=== PATIENT | female | born 2000 | race Caucasian/White ===

== ENCOUNTER 2018-07-11 00:45 | Inpatient (IN) ==
[2018-07-11 02:06] LABS: Microscopic, Urine URINE MICROSCOPIC (MICROSCOPIC)
[2018-07-11 02:10] LABS: Basophils % 0.2 % (0.1-2.0); Eosinophils # 0.1 K/mm3 (0.0-0.4); Hematocrit 35.1 % (37.0-47.0); Hemoglobin 11.4 g/dL (12.2-16.2); Lymphocytes # 2.3 K/mm3 (0.7-4.5); Lymphocytes % 17.7 % (10-50); Mean Corpuscular HGB Conc 32.4 g/dL (31.8-35.4); Mean Corpuscular Hemoglobin 30.2 pg (27.0-31.2); Mean Corpuscular Volume 93.1 fl (81-99); Mean Platelet Volume 9.2 fl (7.4-10.4); Monocytes # 0.8 K/mm3 (0.1-1.0); Monocytes % 5.9 % (1.7-9.3); Neutrophils # 9.7 K/mm3 (1.8-7.8); Neutrophils % 75.3 % (37.0-80.0); Platelet Count 224 K/mm3 (142-424); Red Blood Count 3.77 M/mm3 (4.20-5.40); Red Cell Distribution Width 13.8 % (11.5-17.5); White Blood Count 12.9 K/mm3 (4.5-13.0)
[2018-07-11 02:13] LABS: Appearance,Urine CLEAR (Clear); Bilirubin,Urine Negative (Negative); Blood, Urine Negative (Negative); Color,Urine YELLOW (Yellow); Glucose,Urine (UA) Negative (Negative); Ketones,Urine Negative (Negative); Leukocyte Esterase,Urine Negative (Negative); PH,Urine 6.5 (5.0-8.5); Protein,Urine Negative (Negative); Specific Gravity, Urine 1.025 (1.005-1.030); Urobilinogen,Urine 0.2 EU/dl (0.2)
[2018-07-11 02:15] LABS: Anion Gap 16.8 mEq/L (5-15); Potassium 3.8 mmoL/L (3.5-5.1)
[2018-07-11 02:22] LABS: Amphetamine/Metha Screen,Urine Negative ng/mL (<1000); Barbiturates Screen,Urine Negative ng/mL (<200); Benzodiazepines Screen,Urine Negative ng/mL (<200); Cannabinoid Screen,Urine Negative ng/mL (<50); Cocaine Screen,Urine Negative ng/mL (<300); Methadone Screen,Urine Negative ng/mL (<300); Opiate Screen,Urine Negative ng/mL (<300); Phencyclidine Screen,Urine Negative ng/mL (<25)
[2018-07-11 02:33] LABS: Bacteria,Urine 1+ /lpf
--- NOTE | 2018-07-11 10:42 | Progress Note ---
[facility] Anesthesia Checklist - Patient Identification Patient Identification: Arm Band, Verbal (Name & ) - Structural Data Admitted From: Inpatient Planned Operative Procedure/s: labor epidural Consent for Planned Operative Procedure(s) Verified: Yes Verified Documents: History and Physical - NPO Status Verified Time NPO: 00:00 - Chart Verification Results Verified: CBC - Additional verifications Patient : Yes Anesthesia Reactions: No Cephalosporin Allergy: No Previous Colonoscopy: No - Cardiovascular Assessment Heart Sounds: S1 & S2 Pulse Strength: Baseline Pulse Rhythm: Regular Peripheral Edema: No - Airway Assessment C-Spine Mobility Assessed: Yes TMJ Mobility Assessed: Yes Dentition: Good Dentition - Neurological Assessment Level of Consciousness: Awake, Alert, Appropriate Hx Seizures: No Numbness or tingling in extremities: No - Anesthesia Plan Anesthesia Risk discussed: Yes Anesthesia Plan: Verified ASA Class: II Anesthesia Type: Epidural [facility] History I have reviewed the patient's past medical history: Yes Have you ever received a pneumonia vaccine?: No Have you received a flu vaccine this season?: Yes Other Surgeries: No: - *Social History Educational Level: Completed Grade School Smoking Status: Current every day smoker Tobacco Type: cigarettes # Packs/Day (cigarettes): 1 Alcohol Intake: never Occupational Status: unemployed Housing: house Household Members: children Travel in the last 8 weeks: None - Psychiatric History Expresses thoughts of harming self/others: None Suicide Plan Description: No Plan Para: 1
--- NOTE | 2018-07-11 11:24 | History & Physical Report ---
OB - H&P: HPI Antepartum - History of Present Illness Chief complaint: contractions History of present illness: 18 yo @ 39 10/[address] Lehman ([facility]) presented to triage with regular contractions. Cervical change was noted and she was admitted. Partial records were obtained from primary OB's office. GBS positive with PCN allergy; Clindamycin was started and received 1 dose prior to delivery. O+/Ab-, RPR NR, HIV NR, Hep C/B neg, GC/CT neg, Rubella immune. One previous full term , 1 previous SAB Hx of anxiety, depression and panic attacks but no current meds [facility] History I have reviewed the patient's past medical history: Yes Medical History: Denies:: Seizures Have you ever received a pneumonia vaccine?: No Have you received a flu vaccine this season?: Yes Other Surgeries: No: - *Social History Educational Level: Completed Grade School Smoking Status: Current every day smoker Tobacco Type: cigarettes # Packs/Day (cigarettes): 1 Alcohol Intake: never Occupational Status: unemployed Housing: house Household Members: children Travel in the last 8 weeks: None - Psychiatric History Expresses thoughts of harming self/others: None Suicide Plan Description: No Plan Para: 1 Review of Systems - Review of Systems CONSTITUTIONAL: no fever/chills HEENT: no oral lesions PULMONARY: no shortness of breath or difficulty breathing CV: no racing heart, palpitations or chest pain ABD: no abdominal pain, N/V : reg ctx SKIN: no new rash or skin lesions EXT: no edema NEURO: no mental status changes PSYCH: + anxiety Meds Allergies Allergy/AdvReac Type Severity Reaction Status Date / Time amoxicillin Allergy Unknown Verified 07/11/18 01:42 OB - H&P: Exam - Physical Exam Vital signs: Temp Pulse Resp BP Pulse Ox 97.7 F 91 H 18 103/58 L 100 07/11/18 08:00 07/11/18 08:00 07/11/18 08:00 07/11/18 08:00 07/11/18 08:00 Narrative: CONSTITUTIONAL: no acute distress HEENT: mucous membranes moist PULMONARY: breathing unlabored without audible wheezes CV: no tachycardia or visible JVD; normal LE peripheral pulses ABD: soft, NT/ND, no guarding. Gravid uterus. : cervix /-1 SKIN: no visible rash or lesions HEME: no lymphadenopathy EXT: 1+ edema LEs NEURO: alert/oriented, no altered mental status PSYCH: appropriate mood and demeanor without visible anxiety/depression NST: Basline: 150 Variability: moderate Accelerations: yes Decelerations: no Impression: Reactive, Category 1 OB - Results - Labs Labs: Short CBC 07/11/18 Range/Units 01:55 WBC 12.9 (4.5-13.0) K/mm3 Hgb 11.4 L (12.2-16.2) g/dL Hct 35.1 L (37.0-47.0) % Plt Count 224 (142-424) K/mm3 BMP 07/11/18 01:55 Sodium 137 Potassium 3.8 Chloride 103 Carbon Dioxide 21 BUN 6 L Creatinine 0.61 Glucose 87 Calcium 9.0 Urine 07/11/18 Range/Units 00:55 Urine Color Yellow (Yellow) Urine Appearance Clear (Clear) Urine pH 6.5 (5.0-8.5) Ur Specific [place] 1.025 (1.005-1.030) Urine Protein Negative (Negative) Urine Glucose (UA) Negative (Negative) OB - A/P Antepartum (1) 39 weeks gestation of Current visit: Yes Status: Acute (2) Active labor at term Current visit: Yes Status: Acute (3) with care elsewhere in third trimester Current visit: Yes Status: Acute (4) Positive GBS test Current visit: Yes Status: Acute (5) Tobacco smoking affecting Current visit: Yes Status: Acute (6) Anxiety and depression Current visit: Yes Status: Acute (7) Penicillin allergy Current visit: Yes Status: Acute - Additional Plan Additional Information:: Admission to L&D Clindamycin begun for GBS prophylaxis Epidural at patient request Need additional records from care [facility] consult
--- NOTE | 2018-07-11 11:37 | Procedure Note ---
- Delivery Note Delivery Date:: 07/11/18 Delivery Time:: 10:35 Anesthesia Type: Epidural Was labor medically induced?: No Infant delivered prior to 39 weeks?: No Infant Gender: Female at 1 minute: 7 at 5 minutes: 9 Delivery Procedure:: Spontaneous vaginal delivery of vigorous liveborn female infant over intact perineum. Apgars: & Delivery uncomplicated; nuchal cord x1 reduced on perineum; no shoulder dystocia with delivery taken to warmer for nursing assessment and suction immediately after umbilical cord clamped/cut Peds called for additional assessment and ordered some labs and imaging for baby regarding meconium and purulent drainage Placenta spontaneously expressed and examined; noted to be complete/intact. Vulva, vagina, and cervix inspected; 1st degree perineal laceration reapproximated with 2-0 vicryl EBL: per delivery summary All sponge/needle/instrument counts correct at conclusion of procedure Disposition: Mom/baby stable to recovery in LDRP Laceration:: vaginal Placental Delivery Description: Spontaneous
[2018-07-12 07:17] LABS: Hematocrit 34.1 % (37.0-47.0)
--- NOTE | 2018-07-12 11:20 | Progress Note ---
Internal Medicine - PN: Subj *Date: 07/12/18 *Time: 11:19 Interval history: She is doing well this morning. She is eating and drinking and ambulating. She is breast-feeding. Her lochia is normal. Exam Vital signs and Labs for Last 24 Hours: Temp Pulse Resp BP Pulse Ox 98.0 F 77 18 107/58 L 97 07/11/18 20:21 07/11/18 20:21 07/11/18 20:21 07/11/18 20:21 07/11/18 20:21 Laboratory Results - last 24 hr 07/12/18 06:15: Hgb 11.0 L, Hct 34.1 L I & O for Last 24 hours: Intake & Output 07/09/18 07/10/18 07/11/18 07/12/18 11:59 11:59 11:59 11:59 Weight 173 lb Microbiology Reports for the Last 24 Hours: Microbiology 07/11/18 10:32 Vaginal - Vaginal Gram Stain - Final 07/11/18 10:32 Vaginal - Vaginal Wound Culture - Preliminary - Constitutional no acute distress Comments: She looks pale. Assessment and Plan (1) 39 weeks gestation of Current visit: Yes Status: Acute Category: Medical Code(s): Z3A.39 - 39 weeks gestation of (2) Active labor at term Current visit: Yes Status: Acute Category: Medical (3) with care elsewhere in third trimester Current visit: Yes Status: Acute Category: Medical Code(s): Z34.93 - Encounter for supervision of normal , unspecified, third trimester (4) Positive GBS test Current visit: Yes Status: Acute Category: Medical Code(s): B95.1 - Streptococcus, group B, as the cause of diseases classified elsewhere (5) Tobacco smoking affecting Current visit: Yes Status: Acute Category: Medical Code(s): O99.330 - Smoking (tobacco) complicating , unspecified trimester (6) Anxiety and depression Current visit: Yes Status: Acute Category: Medical Code(s): F41.9 - Anxiety disorder, unspecified; F32.9 - Major depressive disorder, single episode, unspecified (7) Penicillin allergy Current visit: Yes Status: Acute Category: Medical Code(s): Z88.0 - Allergy status to penicillin - Assessment and plan all Dx Assessment and Plan for all problems:: She is doing well this morning. We will plan to send her home tomorrow.
[2018-07-13 08:35] VITALS: BP 104/68
--- NOTE | 2018-07-13 08:39 | Discharge Summary ---
General - General Admission date:: 07/11/18 Discharge date: 07/13/18 HPI HPI: She is a 18-year-old 3 now para 2 aborta 1 who was 39 and 5 weeks gestational age. She has been followed in [place]. She came in in active labor. Hospital Course Hospital Course: She came in in active labor and rapidly progressed to 6 cm. She then progressed to full dilation and delivered spontaneously a liveborn female child at 10:35 AM on the morning of July 11, 2018. The baby weighed 9 pounds 13 ounces and was 20 inches long. She had Apgars of 7 at 1 minute and 9 at 5 minutes. She continues to breast-feed. She has O+ blood, she is rubella immune and was group A streptococcus positive. She did receive IV antibiotics while in labor. She is discharged home to follow-up with Dr. Gonzalez in approximately 2 weeks time. She will continue with [id number] analgesics. She was given Depo- Provera prior to discharge. Her condition on discharge is stable. Rhogam Administration: Not Indicated Objective Vital signs: Temp Pulse Resp BP Pulse Ox 98.4 F 68 20 104/68 L 98 07/13/18 07:20 07/13/18 07:20 07/13/18 07:20 07/13/18 07:20 07/13/18 07:20 no acute distress Results Labs on day of discharge: Preliminary micro results at discharge 07/11/18 10:32 Wound Culture - Preliminary Vaginal - Vaginal DS: Diagnosis - Discharge Diagnosis (1) 39 weeks gestation of Status: Acute (2) Active labor at term Status: Acute (3) with care elsewhere in third trimester Status: Acute (4) Positive GBS test Status: Acute (5) Tobacco smoking affecting Status: Acute (6) Anxiety and depression Status: Acute (7) Penicillin allergy Status: Acute Discharge Plan - Patient Discharge Instructions ACTIVITY: No heavy lifting DIET: continue same diet Additional Instructions: No heavy lifting, no driving for 2 weeks and nothing in the vagina for 6 weeks. Patient Instructions: Depression, Hemorrhage, [facility] Post Discharge Instructions - Follow up Plan Disposition: Home, Self-Fci Medications: Home Medications Medication Instructions Recorded Confirmed Type No Known Home Medications 07/11/18 07/11/18 History Prescriptions/Medication Reconciliation: No Action No Known Home Medications
== END 2018-07-13 10:30 | disposition home or self-care (01) | DRG 807 ==
LOC: OBOUT 00:45 → OB 00:48
PROVIDERS: ADMIT Obstetrics & Gynecology; ATTEND Obstetrics & Gynecology
CPT/HCPCS: 36415; 80048; 80305; 81001; 85014; 85018; 85025; 86850; 87070; 87075; 87077; 87186; 87205; J1050; S0077

== ENCOUNTER 2020-01-19 12:16 | Emergency (ER) | payer MEDICAID, SELFPAY ==
[2020-01-19 12:28] VITALS: BP 115/66; PULSE 84; RESP 16; TEMP 36.8; O2SAT 98; BMI 25.7
[2020-01-19 12:37] LABS: Microscopic, Urine URINE MICROSCOPIC (MICROSCOPIC)
[2020-01-19 12:41] LABS: Appearance,Urine CLEAR (Clear); Bilirubin,Urine Negative (Negative); Blood, Urine 3+ (Negative); Color,Urine YELLOW (Yellow); Glucose,Urine (UA) Negative (Negative); Ketones,Urine Negative (Negative); Leukocyte Esterase,Urine Negative (Negative); Nitrate,Urine Negative (Negative); PH,Urine 5.5 (5.0-8.5); Protein,Urine Negative (Negative); Specific Gravity, Urine >= 1.030 (1.005-1.030); Urobilinogen,Urine 0.2 EU/dl (0.2)
[2020-01-19 12:44] LABS: Urine Pregnancy, HCG Qual. Negative (Negative)
[2020-01-19 12:53] VITALS: BP 121/70; PULSE 74; RESP 16; O2SAT 98
[2020-01-19 12:57] LABS: Bacteria,Urine 2+ /lpf
[2020-01-19 13:28] LABS: Basophils # 0.1 K/mm3 (0-0.2); Basophils % 0.7 % (0.1-2.0); Eosinophils # 0.3 K/mm3 (0.0-0.4); Eosinophils % 3.8 % (0.1-12.0); Hematocrit 42.1 % (37.0-47.0); Hemoglobin 14.5 g/dL (12.2-16.2); Lymphocytes # 2.1 K/mm3 (0.7-4.5); Lymphocytes % 28.8 % (10-50); Mean Corpuscular HGB Conc 34.3 g/dL (31.8-35.4); Mean Corpuscular Hemoglobin 33.2 pg (27.0-31.2); Mean Corpuscular Volume 96.7 fl (81-99); Monocytes # 0.4 K/mm3 (0.1-1.0); Monocytes % 4.7 % (1.7-9.3); Neutrophils # 4.6 K/mm3 (1.8-7.8); Platelet Count 227 K/mm3 (142-424); Red Blood Count 4.36 M/mm3 (4.20-5.40); Red Cell Distribution Width 12.5 % (11.5-17.5); White Blood Count 7.4 K/mm3 (4.8-10.8)
--- NOTE | 2020-01-19 13:41 | HMH.EDGENADL ---
ED Disposition Clinical Impression: 6 weeks follow-up Disposition: Home, Self-Care Condition on Discharge: Good Instructions: DI for Acute Pain -- Adult Prescriptions: Ethinyl Estradiol/Drospirenone [Tita 28 Tablet] 1 each PO DAILY 28 Days #28 tab Transmission Status: Pending to [facility] Referrals: Jimena Aponte [Primary Care Provider] - - Critical Care Critical Care Time: No Attestation: On 01/19/20, the high probability of a clinically significant, sudden or life threatening deterioration of the following system(s) required my full and direct attention, intervention and personal management. The time I documented below is in addition to time spent performing reported procedures but includes the following listed in this critical care notation. Medical Decision Making - Medical Records Medical records reviewed: Yes: I reviewed the patient's medical records. - [place] Inquiry Pt receiving controlled substance: No Vital Signs: 01/19/20 12:28 01/19/20 12:53 Temperature 98.3 F Temperature Source Oral Pulse Rate [Right] 84 74 Respiratory Rate 16 16 Blood Pressure [Right Arm] 115/66 121/70 Blood Pressure Mean [Right Arm] 82 87 Blood Pressure Source [Right Arm] Automatic Cuff Automatic Cuff Blood Pressure Position [Right Arm] Sitting Sitting 02 Sat by Pulse Oximetry 98 98 Oxygen Delivery Method Room Air - Lab Data Lab results reviewed: Yes: I reviewed the patient's lab results. Lab Results 01/19/20 12:30: Urine Color Yellow, Urine Appearance Clear, Urine pH 5.5, Ur Specific [place] >= 1.030, Urine Protein Negative, Urine Glucose (UA) Negative, Urine Ketones Negative, Urine Blood 3+, Urine Nitrate Negative, Urine Bilirubin Negative, Urine Urobilinogen 0.2, Ur Leukocyte Esterase Negative, Urine RBC 10-20, Urine WBC 5-10, Ur Squamous Epith Cells 10-20, Urine Bacteria 2+ 01/19/20 12:30: Urine HCG, Qual Negative 01/19/20 13:22: WBC 7.4, RBC 4.36, Hgb 14.5, Hct 42.1, MCV 96.7, MCH 33.2 H, MCHC 34.3, RDW 12.5, Plt Count 227, MPV 9.0, Neut % (Auto) 62.0, Lymph % (Auto) 28.8, [place] % (Auto) 4.7, Eos % (Auto) 3.8, Baso % (Auto) 0.7, Neut # (Auto) 4.6, Lymph # (Auto) 2.1, [place] # (Auto) 0.4, Eos # (Auto) 0.3, Baso # (Auto) 0.1 Result diagrams: 01/19/20 13:22 Orders (Tests/Meds): ORDERS Category Date Time Status Urine Culture Stat Micro 01/19/20 12:30 Received General Adult HPI - General Chief complaint: PAIN Stated complaint: bleeding heavy Time Seen by Provider: 01/19/20 13:41 Mode of Arrival: Ambulatory Source of Information: Patient Limitations: No Limitations Description of Symptoms (Recalled from ER Triage Doc. by RN): Pt advises she had a period 2 weeks ago and then yesterday she started bleeding again and it has gotten progressively heavier through out the day/night - History of Present Illness HPI narrative: A 19-year-old female presents with heavy menstrual bleeding. She states that is been going on for about for 5 days and she is gone through several tampons and several pads. Otherwise patient has no other acute issues. Patient states she has had these issues ongoing for the last 2 to 3 years but has neglected to get evaluated. Patient denies any recent fever shakes or chills. HPIPatient denies any recent cough or shortness of breath, patient denies any sore throat or headache, patient denies any loss of taste or smell, patient denies any malaise or fatigue, patient denies any abdominal pain nausea vomiting or diarrhea. - Related Data Previous Rx's Medication Instructions Recorded medroxyprogesterone 150 mg/mL 150 mg IM [id number] #1 ml 08/21/18 intramuscular suspension Ethinyl Estradiol/Drospirenone 1 each PO DAILY 28 Days #28 tab 01/19/20 [Tita 28 Tablet] Allergies Allergy/AdvReac Type Severity Reaction Status Date / Time amoxicillin Allergy Unknown Verified 08/21/18 14:33 [facility] History - Hepatitis A Screen Drug use history?: No
[2020-01-19 13:52] VITALS: BP 105/58; PULSE 87; RESP 16; TEMP 36.6; O2SAT 100
== END 2020-01-19 13:52 | disposition home or self-care (01) ==
PROVIDERS: Emergency Provider Family Medicine; PCP Nurse Practitioner Family
DX: O72.2 Delayed and secondary postpartum hemorrhage (principal); Z88.1 Allergy status to other antibiotic agents; F17.210 Nicotine dependence, cigarettes, uncomplicated
CPT/HCPCS: 36415; 81001; 81025; 85025; 87086; 99282; 99283

== ENCOUNTER → 2020-12-27 14:33 | Outpatient (CLI) | payer MEDICAID, SELFPAY ==
[2020-12-27 16:52] LABS: HCG,Quantitative 42319 mIU/ml (0-5.42)
== END ==
PROVIDERS: Visit Provider Obstetrics & Gynecology
DX: Z34.91 Encounter for supervision of normal pregnancy, unspecified, first trimester (principal)
CPT/HCPCS: 36415; 84702

== ENCOUNTER → 2020-12-30 10:26 | Outpatient (CLI) | payer MEDICAID, SELFPAY | PROVIDERS: Visit Provider Obstetrics & Gynecology | DX: Z34.90 Encounter for supervision of normal pregnancy, unspecified, unspecified trimester (principal) | CPT/HCPCS: 36415; 84702 ==

== ENCOUNTER → 2021-01-10 13:12 | Outpatient (CLI) | payer MEDICAID, SELFPAY ==
--- NOTE | 2021-01-10 13:19 | US_ITS ---
PROCEDURE: US OB <= 14 WEEKS FETUS CLINICAL INDICATION: dates COMPARISON: No exams were available for comparison FINDINGS: An intrauterine gestational sac is present with a pole with a crown-rump length of 2.74cm correlating to gestational age of 9weeks 4days. heart tones are present with an FHR of 195bpm. Yolk sac is noted. Unremarkable adnexa. Small amount fluid in the cul-de-sac. IMPRESSION: Live IUP at 9 weeks 4 days Estimated due date by Ultrasound is 08/11/2021 Dictated by: Luis Wan MD 01/10/2021 18:35 Luis Wan MD in OV 01/10/2021 18:35
== END ==
PROVIDERS: PCP Nurse Practitioner Family; Visit Provider Obstetrics & Gynecology
DX: Z34.91 Encounter for supervision of normal pregnancy, unspecified, first trimester (principal)
CPT/HCPCS: 76801

== ENCOUNTER → 2021-01-26 11:49 | Outpatient (CLI) | payer MEDICAID, SELFPAY ==
[2021-01-26 12:34] LABS: Basophils % 0.3 % (0.1-2.0); Eosinophils # 0.1 K/mm3 (0.0-0.4); Eosinophils % 1.4 % (0.1-12.0); Hemoglobin 13.4 g/dL (12.2-16.2); Lymphocytes # 1.7 K/mm3 (0.7-4.5); Lymphocytes % 21.7 % (10-50); Mean Corpuscular HGB Conc 34.3 g/dL (31.8-35.4); Mean Corpuscular Hemoglobin 30.8 pg (27.0-31.2); Mean Corpuscular Volume 89.9 fl (81-99); Monocytes # 0.4 K/mm3 (0.1-1.0); Monocytes % 4.9 % (1.7-9.3); Neutrophils # 5.5 K/mm3 (1.8-7.8); Neutrophils % 71.8 % (37.0-80.0); Platelet Count 233 K/mm3 (142-424); Red Blood Count 4.34 M/mm3 (4.20-5.40); Red Cell Distribution Width 13.3 % (11.5-17.5); White Blood Count 7.7 K/mm3 (4.8-10.8)
[2021-01-27 05:09] LABS: HIV Screen 4th Generation wRfx Non Reactive (Non Reactive)
[2021-01-27 09:32] LABS: Hepatitis B Surface Antigen Negative (Negative); Hepatitis C Antibody <0.1 s/co ratio (0.0-0.9); Rapid Plasma Reagin Ab Titer Non Reactive (NonRea<1:1); Rubella Antibodies, IgG 1.31 index (Immune >0.99)
== END ==
PROVIDERS: Visit Provider Obstetrics & Gynecology
DX: Z34.90 Encounter for supervision of normal pregnancy, unspecified, unspecified trimester (principal)
CPT/HCPCS: 36415; 85025; 86592; 86703; 86762; 86850; 87340; 87380; G0432

== ENCOUNTER → 2021-02-24 14:04 | Outpatient (CLI) | payer MEDICAID, SELFPAY ==
--- NOTE | 2021-02-24 14:18 | US_ITS ---
PROCEDURE: US OB >= 14 WEEKS FETUS CLINICAL INDICATION: no heart tones Ultrasound intrauterine COMPARISON: US US OB <= 14 WEEKS FETUS from 01/10/2021 FINDINGS: Single fetus is noted with a crown-rump length of 6.2 cm correlating to gestational age of 12 weeks 5 days. No heart tones are demonstrated. The placenta is anterior in implantation. No adnexal mass or cul-de-sac fluid evident IMPRESSION: Nonviable intrauterine gestation Dictated by: Luis Wan MD 02/27/2021 08:17 Luis Wan MD in OV 02/27/2021 08:17
== END ==
PROVIDERS: PCP Nurse Practitioner Family; Visit Provider Obstetrics & Gynecology
DX: O36.8390 Maternal care for abnormalities of the fetal heart rate or rhythm, unspecified trimester, not applicable or unspecified (principal)
CPT/HCPCS: 76805

== ENCOUNTER → 2021-02-25 13:23 | Outpatient (CLI) | payer MEDICAID, SELFPAY ==
[2021-02-25 13:56] LABS: Basophils % 0.3 % (0.1-2.0); Eosinophils # 0.2 K/mm3 (0.0-0.4); Eosinophils % 2.1 % (0.1-12.0); Hematocrit 40.3 % (37.0-47.0); Hemoglobin 13.5 g/dL (12.2-16.2); Lymphocytes # 1.6 K/mm3 (0.7-4.5); Lymphocytes % 19.4 % (10-50); Mean Corpuscular HGB Conc 33.4 g/dL (31.8-35.4); Mean Corpuscular Hemoglobin 32.1 pg (27.0-31.2); Mean Platelet Volume 8.5 fl (7.4-10.4); Monocytes # 0.5 K/mm3 (0.1-1.0); Monocytes % 5.8 % (1.7-9.3); Neutrophils # 6.1 K/mm3 (1.8-7.8); Neutrophils % 72.4 % (37.0-80.0); Platelet Count 232 K/mm3 (142-424); Red Cell Distribution Width 13.1 % (11.5-17.5); White Blood Count 8.4 K/mm3 (4.8-10.8)
== END ==
PROVIDERS: Visit Provider Obstetrics & Gynecology
DX: Z01.812 Encounter for preprocedural laboratory examination (principal); Z20.822 Contact with and (suspected) exposure to COVID-19; O02.1 Missed abortion
CPT/HCPCS: 36415; 85025; 86850; C9803; U0003; U0005

== ENCOUNTER 2021-02-27 05:47 | Day surgery (SDC) | payer MEDICAID, SELFPAY ==
[2021-02-27] VITALS (11 sets, daily range): BP systolic 98–144; BP diastolic 66–87; PULSE 68–101; RESP 16–18; TEMP 36.1–36.4; O2SAT 94–100; BMI 27.8
--- NOTE | 2021-02-27 06:47 | HMH.ANESCL ---
[facility] Anesthesia Checklist - Patient Identification Patient Identification: Arm Band, Verbal (Name & ) - Structural Data Admitted From: Home Planned Operative Procedure/s: d and c Consent for Planned Operative Procedure(s) Verified: Yes Verified Documents: History and Physical - NPO Status Verified Time NPO: 00:00 - Chart Verification Results Verified: CBC, BMP - Additional verifications Patient : No Anesthesia Reactions: No Hx Blood Transfusions: No Blood Transfusion Reaction: No Cephalosporin Allergy: No Previous Colonoscopy: No - Cardiovascular Assessment Heart Sounds: S1 & S2 Pulse Strength: Baseline Pulse Rhythm: Regular Peripheral Edema: No - Airway Assessment C-Spine Mobility Assessed: Yes TMJ Mobility Assessed: Yes Dentition: Good Dentition - Neurological Assessment Level of Consciousness: Awake, Alert, Appropriate Hx Seizures: No Numbness or tingling in extremities: No - Anesthesia Plan Anesthesia Risk discussed: Yes Anesthesia Plan: Verified ASA Class: I Anesthesia Type: General [facility] History I have reviewed the patient's past medical history: Yes Medical History: Denies:: Seizures *Have you ever received a pneumonia vaccine?: No *Have you received a flu vaccine this season?: No Anesthesia experience/problems:: none Other Surgeries: Yes: No Previous Surgery. No: Amputation: No Fractures: No - *Social History Smoking Status: Current every day smoker Tobacco Type: cigarettes # Packs/Day (cigarettes): 1 Alcohol Intake: never Substance Use Type: denies use *Occupational Status:: employed Housing: house Household Members: children *Travel in the last 8 weeks: Inside the [facility] Family Hx:: No significant family history
--- NOTE | 2021-02-27 07:43 | US_ITS ---
PROCEDURE: US PELVIC CLINICAL INDICATION: FOLLOW UP D C COMPARISON: No exams were available for comparison FINDINGS: Exam performed during D&C with very limited images submitted.. Boggy appearing uterus noted with no intrauterine contents apparent. The adnexa are not evaluated. IMPRESSION: No intrauterine contents demonstrated on this very limited exam. Dictated by: Luis Wan MD 02/28/2021 07:17 Luis Wan MD in [facility] 02/28/2021 07:17
--- NOTE | 2021-02-27 08:50 | P.PN_ITS ---
[facility] Anesthesia Record Part I Intake, IV Amount: 500 Estimated blood loss (mL): 500 Urine output (mL): 0 Blood Products used (#): none Blood Pressure: 131/74 SaO2: 94 Pulse Rate: 101 Respiratory Rate: 18 Temperature: 97.0 F Patient is:: Awake, Stable Stable to PACU at:: 08:48
--- NOTE | 2021-02-27 09:29 | HMH.OPNOTE ---
Date of procedure: 02/27/21 Pre-op Diagnosis:: Missed , 12 10/14 Post-op Diagnosis:: same Procedure performed:: Dilation and Curettage with suction procedure performed under ultrasound guidance Surgeon:: Sandhya Gonzalez MD [employer]OD[employer]VAGE INSPECTOR:: Other Anesthesia: GETA Estimated blood loss (mL): 500 Operative findings:: Enlarged uterus, 12cm Operative note:: The patient was taken to the OR and general anesthesia administered without difficulty. She was prepped and draped in lithotomy position. Ultrasound was set up with abdominal approach and financial aid advisor present for entire case. Wang retractors were used to visualize the cervix and a single tooth tenaculum placed on the anterior lip of the cervix. The cervix was passively dilated until it could accomodate the suction curette. Sharp curettage was performed and tissue evacuated sequentially, using ultrasound guidance. A size # 10 curved curette was used to assist with evacuation the contents of the uterus. Once all of the and placental tissue had been evacuated per ultrasound findings, sharp curettage was used again to ensure that no products remained within the uterine cavity. All instruments were then removed from the patients vagina, she was taken out of lithotomy position, awakened from anesthesia and taken to the PACU in stable condition. She was given a dose of prophylactic methergine 0.2mg IM before leaving the OR. EBL: 500cc Condition: stable Disposition: PACU Specimens:: tissue Complications:: none
--- NOTE | 2021-02-27 09:40 | SUR.PHASEII ---
MEDICATED WITH IBUPROFEN AND TYLENOL PER STANDING ORDER FOR DR HEATH FOR C/O ABP CRAMPING OF 5.
== END 2021-02-27 10:11 | disposition home or self-care (01) ==
LOC: OR 05:48
PROVIDERS: PCP Nurse Practitioner Family; Visit Provider Obstetrics & Gynecology
PROC: (CPT 59821; principal; 2021-02-27 07:30)
DX: O02.1 Missed abortion (principal); Z3A.16 16 weeks gestation of pregnancy; Z88.1 Allergy status to other antibiotic agents
CPT/HCPCS: 59821; 76856; 96374; J2405

== ENCOUNTER 2024-06-22 05:31 | Emergency (ER) | payer MEDICAID, SELFPAY ==
[2024-06-22 05:32] VITALS: BP 115/72; PULSE 79; RESP 23; TEMP 36.8; O2SAT 99; BMI 27.1
--- NOTE | 2024-06-22 05:49 | ECG_ITS ---
APPROVED REPORT Exam: Resting ECG HR:71 bpm ECG Measurements Heart Rate 71 AXES NH 126 P 15 QRSd 95 QRS 101 QT 368 T 114 QTc 390 Conclusion SINUS RHYTHM RIGHT AXIS DEVIATION [QRS AXIS > 100] MINIMAL ST DEPRESSION [0.025+ mV ST DEPRESSION] ABNORMAL ECG UNCONFIRMED REPORT Electronically signed by : KIRBY NEGRETE, 06/22/2024 23:05:11
--- NOTE | 2024-06-22 05:56 | HMH.EDGENADL ---
Discharge Plan Disposition Patient Disposition: Home, Self-Care Prescriptions Prescriptions: No Action hydrocodone-acetaminophen 5-325 mg tablet 1 tab PO Q8H PRN (Reason: pain) Qty: 20 0RF Activity Restrictions/Add. Instructions Additional Instructions/Restrictions: Please follow-up with your primary care provider. Please return to the emergency department if you develop any new or worsening symptoms or become concerned for your health. Clinical Impressions Clinical Impression: Seizure-like activity Instructions Patient Instructions: DI for Seizure Disorder -- Adult, DI for Seizure (Not Epilepsy/Seizure Disorder), DI for Seizure Disorder -- Child Print Language Print Language: Mexican Discharge ED Provider: Willy Beaulieu Adult HPI General Chief complaint: Seizure Stated complaint: seizure Time Seen by Provider: 06/22/24 05:35 Mode of Arrival: EMS Source of Information: Patient and EMS Limitations: No Limitations Description of Symptoms (Recalled from ER Triage Doc. 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 brother witnessed the incident and called EMS. pt is unable to report the duration or type of seizure she had History of Present Illness HPI narrative: 23-year-old female without significant past medical history presents for seizure-like activity. She was in an argument with her at around 4 AM when she had a seizure. She reports that she has had this happen before at other stressful situations. Once when her grandmother , another time when she was working at [employer] and there were too many people waiting to get sandwiches. She reports that she does not know how long it happens, but she is still awake and can hear what is going on. Her brother called EMS. She did not bite her tongue, did not lose continence. Related Data Previous Rx's ?Medication ?Instructions ?Recorded hydrocodone 5 mg-acetaminophen 325 1 tab PO Q8H PRN pain #20 tabs 02/27/21 mg tablet Allergies Allergy/AdvReac Type Severity Reaction Status Date / Time amoxicillin Allergy Unknown Verified 03/06/21 09:57 [facility] Disclaimer: The information contained in this section may have been updated after the patient was seen, as this information can be updated by other users. Social History Smoking Status: Current every day smoker tobacco type: cigarettes packs per day: 1 second hand exposure: Yes alcohol intake: never substance use type: denies use current occupational status: unemployed Travel in the last 8 weeks: None household members: spouse housing: house caffeine: Yes Have you lived/traveled outside [place] in past 30 days?: No Contact w/someone who lives/traveled outside [place] past 30 days?: No Exposure to someone with infectious disease in past 14 days?: No Do you have a fever (greater than 100.4 F or 38 C)?: No Have you tested positive for COVID-19: No Exposed to someone with COVID-19 in past 14 days?: No Do you have a sore throat?: No Do you have a cough?: No Do you have any weakness?: No Do you have any diarrhea?: No Are you experiencing any unusual bleeding?: No Do you have any muscle aches/pain?: No Do you have any abdominal pain?: No Are you experiencing loss of taste or smell?: No Other Medical History Have you received the Flu Vaccine for this season: Yes Have you received the Pneumonia Vaccine: No ROS Obtained: Yes All systems reviewed & no additional complaints except as documented Physical Exam General General appearance: alert and in no apparent distress Head Head exam: atraumatic and normocephalic Eye Eye exam: Present normal appearance, PERRL and EOMI ENT ENT exam: Present normal oropharynx and normal external ear exam Neck Neck exam: Present normal inspection and full ROM Chest Chest inspection: Present normal inspection and symmetric chest wall rise; Absent tenderness Respiratory Respiratory exam: Present normal lung sounds bilaterally; Absent respiratory distress Cardiovascular Cardiovascular exam: Present regular rate and normal rhythm Abdominal Exam Abdominal exam: Present soft; Absent distention, tenderness or guarding Extremities Exam Extremities exam: Present normal inspection; Absent edema or joint swelling Back Exam Back exam: Present normal inspection; Absent tenderness Neurological Exam Neurological exam: Present alert and oriented X3; Absent motor sensory deficit Psychiatric Psychiatric exam: Present normal affect and normal mood Skin Skin exam: Present warm, dry and normal color Lymphatic Lymphatic Findings: no adenopathy Medical Decision Making Medical Records Medical records reviewed: Yes I reviewed the patient's medical records. Screening: Per USPSTF and CDC recommendations, given the prevalence of disease in our region, it is our hospital?s policy to screen for HIV and viral Hepatitis for all patients aged 18 and over and those with ongoing risk factors. [place] Inquiry Pt receiving controlled substance: No [place] was queried for this patient: No Vital Signs: 06/22/24 05:32 06/22/24 06:00 06/22/24 06:30 Temperature 98.2 F Temperature Source Oral Pulse Rate 72 Pulse Rate [Right] 79 Respiratory Rate 23 20 18 Blood Pressure 111/73 109/74 L Blood Pressure [Right Arm] 115/72 Blood Pressure Mean [Right Arm] 86 02 Sat by Pulse Oximetry 99 100 99 Oxygen Delivery Method Room Air 06/22/24 08:06 Temperature 98.2 F Temperature Source Pulse Rate 78 Pulse Rate [Right] Respiratory Rate 16 Blood Pressure 110/73 Blood Pressure [Right Arm] Blood Pressure Mean [Right Arm] 02 Sat by Pulse Oximetry Oxygen Delivery Method Room Air Lab Data Lab results reviewed: Yes I reviewed the patient's lab results. Lab Results 06/22/24 05:43: HCV Ab ADEBAYO w/Rflx PCR Qn Negative, HIV Ag/Ab Combo Qual Negative Orders (Tests/Meds): ED MEDICATIONS Discontinued Medications Generic Name Dose Route Start Last Admin Trade Name Freq PRN Reason Stop Dose Admin Acetaminophen 1,000 mg 06/22/24 05:56 06/22/24 06:00 Acetaminophen 500mg Tab PO 06/22/24 05:57 1,000 mg ONCE ONE Administration Ibuprofen 600 mg 06/22/24 05:56 06/22/24 06:00 Ibuprofen 600 Mg Tablet PO 06/22/24 05:57 600 mg ONCE ONE Administration ORDERS Category Date Time Status HIV Combo Stat Lab 06/22/24 05:43 Completed Hepatitis C Ab Qual. W/ RFX Stat Lab 06/22/24 05:43 Completed Medical Decision Narrative: 23-year-old female with reported history of stress-induced seizures presents for possible seizure-like activity. History was obtained via interactive discussion with patient. On arrival, patient is [afebrile, hemodynamically stable, satting appropriately, alert, oriented x4, GCS 15], moving all extremities spontaneously. Full physical exam performed and significant for no significant physical exam abnormalities. Blood sugar normal Differential includes but is not limited to pseudoseizures, seizure, trauma. Blood work, CT imaging, observation was considered, but deemed unnecessary due to history and exam. 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 No evidence of trauma on exam. Normal vital signs. No focal neurologic deficits on exam. Given patient history, exam and workup, patient's presentation most likely represents nonepileptic spells. Recommend she follow-up with PCP for further assessment. Discharged in stable condition.. Procedures Risk/Benefits of Procedure(s) Were Explained: Yes Critical Care Critical Care Time Critical Care Time: No
[2024-06-22 06:00] VITALS: BP 111/73; PULSE 72; RESP 20; O2SAT 100
[2024-06-22] MEDS: IBUPROFEN 600 MG TABLET PO (06:00)
[2024-06-22] MEDS: ACETAMINOPHEN 500MG TAB 1000 MG PO (06:00)
--- NOTE | 2024-06-22 06:14 | PC.NURSE ---
Pt in sinus rhythm per continuous heart monitor. Seizure precautions in place
[2024-06-22 06:30] VITALS: BP 109/74; RESP 18; O2SAT 99
--- NOTE | 2024-06-22 07:25 | PC.NURSE ---
rounded on pt, offered breakfast tray. pt declined. no needs at this time. call light within reach
[2024-06-22 08:06] VITALS: BP 110/73; PULSE 78; RESP 16; TEMP 36.8; O2SAT 99
[2024-06-22 11:16] LABS: HIV Combo NEGATIVE (Negative)
[2024-06-22 11:24] LABS: Hepatitis C Ab Qual. W/ RFX NEGATIVE (Negative)
== END 2024-06-22 07:30 | disposition home or self-care (01) ==
PROVIDERS: Emergency Provider Emergency Medicine; PCP Nurse Practitioner Family
DX: R56.9 Unspecified convulsions (principal)
CPT/HCPCS: 86803; 87389; 93005; 99283